=== PATIENT | male | born 1955 | race Caucasian/White ===

== ENCOUNTER → 2024-01-22 15:34 | Outpatient (REF) | payer MEDICARE, OTHER, SELFPAY | LOC: MRI 3T 15:34 | PROVIDERS: ATTENDING PHYSICIAN Surgery; FAMILY PHYSICIAN Family Medicine | DX: R97.20 Elevated prostate specific antigen [PSA] (principal) | CPT/HCPCS: 72197; A9575 ==

== ENCOUNTER → 2024-09-30 12:49 | Outpatient (REF) | payer MEDICARE, OTHER, SELFPAY | LOC: RCS 12:49 | PROVIDERS: ATTENDING PHYSICIAN Nuclear Medicine Nuclear Cardiology; FAMILY PHYSICIAN Family Medicine | DX: I35.0 Nonrheumatic aortic (valve) stenosis (principal) | CPT/HCPCS: 93306 ==

== ENCOUNTER → 2024-11-25 16:35 | Outpatient (REF) | payer MEDICARE, OTHER, SELFPAY | LOC: MRI 3T 16:35 | PROVIDERS: ATTENDING PHYSICIAN Surgery; FAMILY PHYSICIAN Family Medicine | DX: R97.20 Elevated prostate specific antigen [PSA] (principal) | CPT/HCPCS: 72197; A9575 ==

== ENCOUNTER 2024-11-26 08:27 | Outpatient (RCR) | payer MEDICARE, OTHER, SELFPAY | END 2024-11-26 23:59 | disposition home or self-care (01) | LOC: RPT 08:27 | PROVIDERS: FAMILY PHYSICIAN Family Medicine | DX: I89.0 Lymphedema, not elsewhere classified (principal); Z73.6 Limitation of activities due to disability; R26.2 Difficulty in walking, not elsewhere classified; R26.89 Other abnormalities of gait and mobility | CPT/HCPCS: 97162; 97530 ==

== ENCOUNTER 2024-12-14 19:52 | Emergency (ER) | payer MEDICARE, OTHER, SELFPAY ==
[2024-12-14 19:54] VITALS: BP 179/99
[2024-12-14] MEDS: ROXICODONE 5 MG PO (22:23)
[2024-12-14] MEDS: DECADRON 10 MG PO (22:24)
[2024-12-14 23:44] VITALS: BP 163/94; BMI 23.3
--- NOTE | 2024-12-15 00:15 | EDRN ---
Dr. Arce in to go over results with patient and plan for discharge home.
--- NOTE | 2024-12-15 00:34 | ED.GENMED ---
History of Present Illness
General
Chief Complaint: Musculo-Skeletal Complaint
Source: patient and spouse
Exam Limitations: none
Time Seen by Provider: 12/14/24 21:59
Nursing documentation reviewed up to this point in time: agreed with
History of Present Illness
History of Present Illness:
Note:
CHIEF COMPLAINT(S)
Right leg swelling and pain.
HISTORY OF PRESENT ILLNESS
The patient is a 69-year-old male with a history of deep vein thrombosis (DVT) who presents with right leg swelling and pain following a twisting injury. He reports twisting the leg, which was initially painful, and noted that the swelling and
bruising have progressively worsened. He recalls the leg turning black and blue. An X-ray performed at urgent care was reportedly normal. The patient is currently ambulating with a boot and primarily walking on his heel due to discomfort. He
describes the pain as constant and no longer alleviated by acetaminophen and elevation as it was initially. The pain has persisted since last night.
The patient has a history of type 2 diabetes, for which he monitors his blood glucose pre-mealtime. He is currently taking acetaminophen 325 mg, two tablets every five hours, for pain management. Due to his history of DVT, he is on anticoagulation
therapy with apixaban (Eliquis).
An evaluation with re-ultrasound of the leg is planned to rule out a new DVT. The patients pain necessitates stronger analgesic management beyond routine acetaminophen.
CHRONIC MEDICAL CONDITIONS SIGNIFICANTLY AFFECTING CARE
- Deep vein thrombosis (DVT)
- Type 2 diabetes mellitus
MEDICATIONS
- Apixaban (Eliquis) - for DVT
- Acetaminophen 325 mg, 2 tablets every 5 hours as needed
- Steroids 7.5 mg (steroid use unspecified, likely prednisone)
REVIEW OF SYSTEMS
- Musculoskeletal: Right leg swelling, bruising, and pain following a twisting injury. The patient describes inability to effectively manage pain with current acetaminophen regimen and elevation.
PHYSICAL EXAM
General: Alert, no acute distress.
Skin: Warm, dry, noted swelling and bruising of the right leg.
Head: Normocephalic, atraumatic.
Neck: Supple, trachea midline.
Eye, Ears, Nose, Mouth and Throat: Oral mucosa moist.
Cardiovascular: Normal peripheral perfusion, No edema.
Respiratory: Respirations are non-labored.
Gastrointestinal: Abdomen nondistended.
Back: Normal range of motion, Normal alignment.
Musculoskeletal: Notable swelling and bruising of the right leg.
Neurological: Alert and oriented to person, place, time, and situation, No focal neurological deficit observed.
Psychiatric: Cooperative, appropriate mood & affect.
PROBLEM LIST
Acute:
- Right leg swelling and bruising post-injury with worsening pain.
Chronic:
- Deep vein thrombosis
- Type 2 diabetes mellitus
PLAN
1. Re-ultrasound of the right leg to evaluate for new DVT.
2. Administer a one-time dose of dexamethasone to reduce swelling, advising of possible hyperglycemia due to steroid.
3. Provide a single dose of Percocet for acute pain management and instruct patient no additional Tylenol for four hours.
4. Ensure ongoing monitoring of blood glucose due to dexamethasone administration.
5. Encourage continued use of the boot to manage leg mobility and stress.
DIFFERENTIAL DIAGNOSIS
The Differential Diagnosis includes, in no particular order and is not limited to:
- Deep vein thrombosis recurrence-no signs of acute DVT on ultrasound
- Muscle sprain
- Contusion or hematoma
- Cellulitis
- Compartment syndrome
- Fracture (despite initial normal X-ray)
- Venous insufficiency
- Peripheral edema related to diabetes
- Gout
- Arterial insufficiency
Disposition:
SUMMARY OF ENCOUNTER
The patient is a 69-year-old male with a history of deep vein thrombosis (DVT), currently on apixaban. He presented to the emergency department due to concern over persistent swelling and pain in his right leg, following a twisting injury sustained
while wrestling with his grandson. An initial X-ray conducted previously showed normal results, but with noted soft tissue swelling. The patient was concerned as the swelling hasnt subsided over several days. An ultrasound conducted today confirmed
no new clots, showed well-healed DVTs, and observed decreased flow, likely contributing to prolonged swelling. Due to persistent pain, a prescription for Percocet will be provided.
DISPOSITION
Discharge
ASSESSMENT
The swelling and pain are attributed to prolonged soft tissue injury recovery alongside existing DVT history rather than a new clot formation.
PLAN
The patient will be discharged with a prescription for Percocet to manage acute pain. He will continue his current anticoagulation therapy with apixaban. He is advised to monitor any changes or prolonged symptoms.
INDEPENDENT REVIEW OF LABS AND INTERPRETATION OF TESTS
My independent review of the X-ray shows no acute fractures, with noted soft tissue swelling. My independent review of the ultrasound today shows no evidence of a new clot, only well-healed DVTs with patent lumens and decreased flow.
PATIENT EDUCATION AND COUNSELING
The patient was informed about the prolonged healing process of soft tissue injuries and reassured due to the lack of new clot development. Instructions were given to continue monitoring symptoms and seek further medical attention if the condition
doesnt improve.
FOLLOW-UP INSTRUCTIONS
The patient was advised to follow up with his primary care physician if symptoms do not resolve or if new symptoms arise.
MEDICATION RECONCILIATION
A prescription for Percocet has been provided for pain management. The patient will continue taking apixaban as prescribed for DVT management.
MEDICAL DECISION MAKING
-Complexity of Data Reviewed: Chronic conditions affecting care include deep vein thrombosis and type 2 diabetes mellitus. The differential diagnosis considered recurrence of DVT, muscle sprain, contusion or hematoma, cellulitis, compartment
syndrome, fracture, venous insufficiency, peripheral edema related to diabetes, gout, and arterial insufficiency.
-Data:
Category 1
My independent interpretation of the X-ray is normal bone structure with soft tissue swelling. My independent interpretation of the ultrasound shows no new clots and well-healed DVT.
-Risk:
Prescription medication was prescribed (Percocet). Given the complexity and risk of the patients presenting complaint and underlying conditions, escalation of care, including admission/observation, was considered. However, the patient is deemed safe
for outpatient management with close follow-up, as recent imaging does not reveal acute life-threatening processes, and symptoms are manageable.
DIAGNOSIS
Contusion or soft tissue swelling with persistent pain following minor trauma (ICD-10: S80.11XA).
Past History
Past History
ED Past Medical History: COPD (Resolved after lung transplant) and HTN
ED Past Surgical History: Other (Bilateral lung transplant 7 years ago)
Social History
Tobacco: Former smoker
Alcohol: None
Drug: None
Personal:
Living: with family
Employment: Retired
Family History
Family History: Hypertension and Other (Father with severe COPD); Negative Diabetes
Phy Exam
Physical Exam
Physical Exam:
.
Course
Orders/Labs/Results
Orders:
Orders
12/14/24 22:11
Dexamethasone Pf [Decadron] 10 mg PO NOW STA
Oxycodone [Roxicodone] 5 mg PO NOW STA
US Legs, Right [US Periph Venous LOWER Ext RT] Urgent
Comment:
Reason For Exam: incr swelling after fall, known dvt
Vital Signs
Initial and Last Documented VS:
Initial Vital Signs
Temp Pulse Resp BP Pulse Ox
97.5 F 87 16 179/99 98
12/14/24 19:54 12/14/24 19:54 12/14/24 19:54 12/14/24 19:54 12/14/24 19:54
Last Documented Vital Signs
Temp Pulse Resp BP Pulse Ox
97.5 F 72 16 163/94 96
12/14/24 19:54 12/14/24 23:44 12/14/24 23:44 12/14/24 23:44 12/15/24 00:36
*Radiology
Radiology exam reviewed: other (Reviewed from urgent care)
*Pulse Oximetry
SaO2: 96
Oxygen Mode of Delivery: Room air
Patient hypoxic: no
*Critical Care Note
Total Time (30-74mins, 75-104mins- exclusive of procedures): Not Applicable
Update Note
Update Note:
NAME: MANUEL ARRINGTON
DATE OF EXAM: 12/14/2024
Patient No: [id number]
Physician: KAIDEN^GREGORY^Juliana
Date of : 1955
Past Medical History (entered by Technologist):
Reason For Exam (entered by Technologist):
Other Notes (entered by Technologist):
Additional Information (per [facility] Radiologist): History of DVT. Currently anticoagulated
RIGHT LOWER EXTREMITY DUPLEX ULTRASOUND:
IMPRESSION
Compared to 05/18/2019
Nonocclusive thrombus in the proximal femoral vein and popliteal vein, previously occlusive thrombus. This may be chronic thrombus given regions of echogenicity in the thrombus, difficult to completely exclude any acute on chronic thrombus.
No other filling defects.
[Case discussed with Dr. Acre at 11:59 PM Eastern time
Bob Motta M.D.
This report has been electronically signed and verified by the Radiologist whose name is printed above.
ED Attending Note
-
Portions of this chart may have been created with voice recognition software.� Occasional wrong word or��sound alike� substitutions may have occurred due to the inherent limitations of voice recognition software.
Discharge Plan
Departure
Patient Disposition: Home (Routine Discharge)
Date of Disposition: 12/15/24
Time of Disposition: 00:36
Patient with high blood pressure during this ER visit?: Yes
Condition: Good
Discharge Problem:
Right foot and ankle swelling
Instructions: Sprain (DC), Using Cold for Pain
Prescriptions:
New
oxycodone-acetaminophen [Percocet] 5-325 mg tablet
1 tab PO Q6HPRN PRN (Reason: pain) Qty: 10 0RF
No Action
lisinopril 20 MG tablet
20 mg PO BID
atorvastatin 40 MG tablet
20 mg PO HS
valganciclovir 450 MG tablet
450 mg PO DAILY
prednisone 10 MG tablet
7.5 mg PO DAILY
azithromycin 250 MG tablet
250 mg PO SUTUTH
sulfamethoxazole-trimethoprim 1 TABLET tablet
1 tab PO MOWEFR
diltiazem HCl 120 MG tablet
240 mg PO HS
diltiazem HCl 120 MG tablet
120 mg PO DAILY
tamsulosin 0.4 MG capsule
0.5 mg PO HS
metoprolol tartrate 50 MG tablet
50 mg PO BID
omeprazole 20 MG capsule,delayed release(DR/EC)
20 mg PO DAILY
furosemide 20 MG tablet
40 mg PO DAILY
tacrolimus [Prograf] 1 MG capsule
0.75 mg PO DAILY
magnesium oxide 250 MG tablet
500 mg PO BID
calcium carbonate-vitamin D3 [Calcium 500 + D] 1 EACH tablet
1 ea PO BID
Prolia 60 MG/ML syringe
60 mg SC [id number]
Eliquis 2.5 MG tablet
2.5 mg PO BID
Iron 65 MG Tab
65 mg PO BID
oxycodone 5 MG tablet
5 mg PO Q4HPRN PRN (Reason: breakthrough/severe pain) Qty: 10 0RF
Referrals:
[facility] [Provider Group]
Activity Restrictions/Additional Instructions:
Your prescriptions were sent electronically to the pharmacy that you specified.
Thank You for choosing [facility].
It was a pleasure meeting you and taking part in your care. We hope for your continued healing and wellness.
Please read discharge instructions in their entirety. However, they are for general education and may not describe your exact diagnosis at discharge. Information on your ER visit and medical conditions were discussed with you along with appropriate
follow up information...
If indicated, please take your medications as instructed and indicated on discharge paperwork.
Please schedule a follow up appointment as directed. Call to schedule an appointment
Please return to the emergency department with ANY change in, persisting, or worsening of symptoms. If any of your symptoms do not improve, or persist, or become more severe within 6-12 hours, please return to the emergency department for further
care.
Please return to the emergency department if you develop a headache, neck pain/stiffness, fever greater than 100.4F, chest pain, shortness of breath, persistent nausea, vomiting, slurred speech, difficulty walking, numbness/tingling, weakness, signs
of infection or any other symptoms that are worrisome to you.
If you have any questions or concerns please do not hesitate to call the Hospital at or E-mail me directly at [email or web address]
Interventions
Interventions:
*Risk Screen - Suicide Last Done: 12/14/24 21:47
*General Assessment Last Done: 12/14/24 21:47
*Neglect/Abuse Screening Last Done: 12/14/24 21:47
*ED- Fall Risk Assessment Last Done: 12/14/24 19:54
*ED COVID-19 Vaccine History Last Done: 12/14/24 21:47
*Nursing Disposition Last Done: 12/15/24 00:51
ED-Musculoskeletal Assessment Last Done: 12/14/24 21:47
Discharge Date and Time
Discharge Date/Time: 12/15/24 00:51
Print Language: SALVADOREAN
== END 2024-12-15 00:51 | disposition home or self-care (01) ==
LOC: EMR 19:52
PROVIDERS: EMERGENCY PHYSICIAN Student in an Organized Health Care Education/Training Program
DX: R22.41 Localized swelling, mass and lump, right lower limb (principal); S80.11XA Contusion of right lower leg, initial encounter; E11.9 Type 2 diabetes mellitus without complications; W50.2XXA Accidental twist by another person, initial encounter; Z94.2 Lung transplant status; Z87.891 Personal history of nicotine dependence; Z86.718 Personal history of other venous thrombosis and embolism; Z79.01 Long term (current) use of anticoagulants
CPT/HCPCS: 99284; 93971